=== PATIENT | female | born 1940 | race Caucasian/White ===

== ENCOUNTER 2017-02-18 07:09 | Outpatient (CLI) | payer MEDICARE, OTHER ==
[~2017-02-18] VITALS: Ht 162.6 cm; Wt 40.1 kg
--- NOTE | ~2017-02-18 | CATH ---
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 Fib Diagnostic Recommendations Medical therapy Procedure Description The patient was brought to the diagnostic cardiac catheterization-EP laboratory in the fasting, non-sedated state. Informed consent was obtained in the written and verbal form after the risks and benefits were explained. The patient had no further questions and agreed to proceed. The planned puncture-incision site(s) were shaved and prepped with ChloraPrep and draped in the usual sterile manner. Pain control medications were delivered by a registered nurse under physician guidance. Surface ECG rhythm, blood pressure measurement, and pulse oximetry were monitored throughout the procedure. Arterial access. The access site was infiltrated with lidocaine. The vessel was entered with the Seldinger technique. A sheath was advanced into the vessel and used for catheter placement. Venous access. The access site was infiltrated with 2% lidocaine. The vessel was entered with the Seldinger technique. A sheath was advanced into the vessel and used for catheter placement. Selective left coronary angiography. A catheter was advanced into the left coronary vessel ostium under Fluoroscopic guidance. Contrast was injected by hand. Images were obtained in multiple projections. Selective right coronary angiography. A catheter was advanced into the right coronary vessel ostium under fluoroscopic guidance. Contrast was injected by hand. Images were obtained in multiple projections. Left heart catheterization. A catheter was advanced across the aortic valve to the left ventricle under fluoroscopic guidance. Resting hemodynamics were obtained. Right heart catheterization. A Wilder Lissa catheter was successfully advanced to the right atrium, right ventricle, pulmonary artery, and pulmonary artery wedge position under fluoroscopic guidance. Resting hemodynamics were obtained. Measurements included pressures, arterial and venous oxygen saturation samples, and cardiac output. The Wilder was removed without difficulty. Arterial and Venous hemostasis was achieved. The patient was transferred to a regular nursing floor via cart accompanied by a nurse. The patient left the laboratory in stable condition. Diagnostic Cath Status: Elective Procedure Procedure Type Diagnostic procedure:Angiography:, Right and Left Heart Cath, Coronary Angios Indications: Shortness of breath and Abnormal Stress Test. The procedure was explained in detail to the patient. Risks, complications and alternative treatments were reviewed. Written consent was obtained. Medications Reviewed with Patient prior to Procedure. Angiographic Findings Dominance: Right Cardiac Arteries and Lesion Findings LMCA: Normal (0% Stenosis).Large LAD: Normal (0% Stenosis).LAD medium normal. Diag 1 small ok LCx: Normal (0% Stenosis).Circ non dominant. Medium normal. OM 1 large and normal RCA: Normal (0% Stenosis).RCA medium, large and normal. PL medium normal. PDA small ok Procedure Data Procedure Date Date: 02/18/2017Start: 09:14 AMEnd: 10:09 AM Entry Locations - Retrograde Percutaneous access was performed through the Right Femoral artery (Primary location). A 6 Fr sheath was inserted. Hemostasis was successfully obtained using Manual Compression. Closure Comments: Manual pressure held by Yvon. - Retrograde Percutaneous access was performed through the Right Femoral artery. A 7 Fr sheath was inserted. Hemostasis was successfully obtained using Manual Compression. Closure Comments: Manual pressure held by Yvon. - Retrograde Percutaneous access was performed through the Right Femoral vein. A 7 Fr sheath was inserted. Hemostasis was successfully obtained using Manual Compression. Closure Comments: Manual pressure held by Yvon. Procedure Medications Order and Administration + + +-------+ + !Time !Medication !Dosage !Route ! + + +-------+ + !02/18/2017 09:38 AM !Amiodarone !150 mg !I.V. bolus ! + + +-------+ + !02/18/2017 09:42 AM !Fentanyl !25 mcg !I.V. ! + + +-------+ + !02/18/2017 09:47 AM !Amiodarone ! !I.V. bolus ! + + +-------+ + Devices Used - A6 Fr. BS Angled Pigtail Diag. Catheterwas used for:LV Pressures. - A6 Fr. BS JL 4 Diag. Catheterwas used for:Left coronary angiography. - A6 Fr. BS JR 4 Diag. Catheterwas used for:Right coronary angiography. Contrast Material - Isovue 52529 ml Fluoroscopy Time: Diagnostic: 6:42 minutes. Total: 6:42 minutes. Fluoroscopy Dose: Diagnostic: 94 mGy. Total: 94 mGy. Estimated Blood Loss: 4 ml. Medical History Performed Procedures and Imaging Results - Standard exercise stress testwas performed. Results were: Positive. Allergies - No known allergies. Risk Factors The patient risk factors include:former tobacco use. Admission Data Admission Date: 02/18/2017 Admission Time: 07:09 AM Admit Source: Other Insurance Payors: Medicare. Admission Medications + +------+------+ + + + + !Medication !Dosage!Times !Last !Last !Administered !Comments ! ! ! !Per !Delivery !Delivery ! ! ! ! ! !Day !Date !Time ! ! ! + +------+------+ + + + + !Beta ! ! ! ! ! ! ! !Racquel ! ! ! ! ! ! ! !(any) ! ! ! ! ! ! ! + +------+------+ + + + + Clinical Evaluation Leading to Procedure - There were no CAD presentation symptoms. - Anti-anginal medications were prescribed during the past two weeks. The medication is: Beta Blockers. Hemodynamics Condition: Rest O2 Consumption: Estimated: 115.64Heart Rate: 51 bpm Oxygen Saturation +--------+-----+----+ +---+ + !Location!pCO2 !pO2 !% Saturation !Hgb!O2 Content ! +--------+-----+----+ +---+ + !FA ! ! !90.4 ! ! ! +--------+-----+----+ +---+ + !SVC ! ! !58.7 ! ! ! +--------+-----+----+ +---+ + !IVC ! ! !71.7 ! ! ! +--------+-----+----+ +---+ + !RA ! ! !60.6 ! ! ! +--------+-----+----+ +---+ + !PCW ! ! !64.2 ! ! ! +--------+-----+----+ +---+ + Pressures (mmHg) +-----+ + !Site !Pressure ! +-----+ + !RA !3/4 (2) ! +-----+ + !RV !37/-1 ,-1 ! +-----+ + !PCW !15 (13) ! +-----+ + !PA !34/17 (24) ! +-----+ + !LV !204/3 ,6 ! +-----+ + !PCW ! (18) ! +-----+ + !LV !200/5 ,6 ! +-----+ + !PCW !23/21 (19) ! +-----+ + !LV !202/6 ,9 ! +-----+ + !PCW !24/24 (22) ! +-----+ + !AO !200/111 (152) ! +-----+ + !LV !190/4 ,8 ! +-----+ + !AO !200/112 (153) ! +-----+ + !AO !195/99 (143) ! +-----+ + Cardiac Output + + +-----+ !Time !Cardiac Output (l/min) !Use ! + + +-----+ !02/18/2017 09:42 AM !2.84 !True ! + + +-----+ !02/18/2017 09:42 AM !2.68 !True ! + + +-----+ !02/18/2017 09:43 AM !2.67 !True ! + + +-----+ !02/18/2017 09:44 AM !2.7 !True ! + + +-----+ Cardiac Output +-------+ + + + !Method !CO (l/min) !CI (l/min/m2) !SV (ml) ! +-------+ + + + !Tien !2.08 !1.5 !40.81 ! +-------+ + + + !Thermal!2.7225 !2 !25.99 ! +-------+ + + + Valve Gradients and Areas + +--------+--------+--------+---------+ + + !Valve !Peak !Mean !Area !Index !Flow !Source ! + +--------+--------+--------+---------+ + + !Aortic !0 !0 ! ! !386.62 !Tien ! + +--------+--------+--------+---------+ + + !Aortic !0 !0 ! ! !506.04 !Thermal ! + +--------+--------+--------+---------+ + + Shunts Oxygen Values O2 Capacity 186.32 O2 Consumption 115.64 Flows (l/min) Qs 2.18 Qe 27.6 Vascular Resistance (dynes x sec x cm-5) + +-----+-----+-----+----+---------+-------+ !CO method !TSVR !SVR !TPVR !PVR !TPVR/TSVR!PVR/SVR! + +-----+-----+-----+----+---------+-------+ !Tien !68.95!68 !11.58!1.08!0.17 !0.02 ! + +-----+-----+-----+----+---------+-------+ !Thermal !52.67!51.95!8.85 !0.83!0.17 !0.02 ! + +-----+-----+-----+----+---------+-------+ !Qp or Qs !65.78!64.88! ! ! ! ! + +-----+-----+-----+----+---------+-------+ Signatures dtt: Kai Regalado (cardio) dtd: 02/18/17 0914 Physician Self Edit
[~2017-02-18 07:09] MED LIST: METOPROLOL TART25 MG PO
[2017-02-18] MEDS ORDERED: CORDARONE,PACE200 MG PO (10:53)
== END 2017-02-18 16:40 | disposition disaster alternative care site (69) ==
LOC: GCAT 07:09 → GPCU 07:09 → GCAT 13:00
PROC: B2111ZZ Fluoroscopy of Multiple Coronary Arteries using Low Osmolar Contrast (ICD-10-PCS; principal; 2017-02-18)
PROC: 4A023N8 Measurement of Cardiac Sampling and Pressure, Bilateral, Percutaneous Approach (ICD-10-PCS; principal; 2017-02-18)
DX: R06.09 Other forms of dyspnea (principal); I48.91 Unspecified atrial fibrillation; I27.2 Other secondary pulmonary hypertension; F17.210 Nicotine dependence, cigarettes, uncomplicated; Z68.1 Body mass index [BMI] 19.9 or less, adult; Z90.49 Acquired absence of other specified parts of digestive tract; R94.39 Abnormal result of other cardiovascular function study
CPT/HCPCS: J0282; J0461; J1644; J3010; J7030; J7060

== ENCOUNTER → 2017-03-06 | Outpatient (CLI) | payer MEDICARE, OTHER ==
[~2017-03-06] MED LIST changes: +CORDARONE,PACE200 MG PO
--- NOTE | ~2017-03-06 | PUL ---
PATIENT'S NAME: SLAVA MAGALLON [facility] AGE: 76 Y [address] 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 Spirometry demonstrates severe airflow obstruction. There is improvement post bronchodilator. 2. Lung volumes demonstrate air trapping. 3. Diffusing capacity is severely reduced. MD HERIBERTO XIONG/ /[id number] dtt: 03/26/17 0825 , Sheng Hammond dtd: 03/07/17 0909
== END | disposition disaster alternative care site (69) ==
LOC: GRTH 10:43
DX: R06.09 Other forms of dyspnea (principal); J98.8 Other specified respiratory disorders